=== PATIENT | male | born 1965 | race Caucasian/White ===

== ENCOUNTER 2020-09-29 17:07 | Emergency (ER) | payer OTHER, SELFPAY ==
[2020-09-29] VITALS (12 sets, daily range): BP systolic 107–139; BP diastolic 68–91; PULSE 74–93; RESP 13–39; TEMP 37.6; O2SAT 95–99; BMI 27.2
--- NOTE | 2020-09-29 17:10 | DI.RAD.S_ITS ---
PROCEDURE: XR CHEST 1V INDICATIONS: chest pain TECHNIQUE: One view of the chest was acquired. COMPARISON: None. FINDINGS: Surgical changes and devices: None. Lungs and pleura: Lungs are clear. No pleural effusions or pneumothorax. Mediastinum: Mediastinal contours appear normal. Heart size is normal. Bones and chest wall: No suspicious bony lesions. Overlying soft tissues appear unremarkable. IMPRESSION: No evidence acute pulmonary process. Dictated by: Luis Choudhury M.D. on 09/29/2020 at 17:21 Approved by: Luis Choudhury M.D. on 09/29/2020 at 17:22
--- NOTE | 2020-09-29 17:36 | PC.NURSE ---
When asked if pt feels safe at home pt sts I don't know, this keeps happening at home. I don't know if I'm safe. Pt reports he lives with (at bedside) and 11yo daughter.
[2020-09-29 17:41] LABS: Add Manual Diff / Slide Review NO; Basophils Absolute Auto 0 /uL (0-100); Basophils Percent Auto 0.9 % (0-2); Eosinophils Absolute Auto 100 /uL (0-450); Eosinophils Percent Auto 1.5 % (2-4); Hematocrit 41.3 % (41-53); Hemoglobin 14.1 g/dL (13.5-17.5); Lymphocytes Absolute Auto 1600 /uL (1100-4500); Lymphocytes Percent Auto 30.1 % (25-40); Mean Corpuscular HGB Conc 34.2 % (30-36); Mean Corpuscular Hemoglobin 31.2 PG (26-34); Mean Corpuscular Volume 91.1 fL (80-100); Monocytes Absolute Auto 300 /uL (0-900); Monocytes Percent Auto 5.2 % (3-14); Neutrophils Absolute Auto 3300 /uL (1500-7000); Neutrophils Percent Auto 62.3 % (50-75); Platelet Count 384 X10^3/uL (150-400); Red Blood Cell Count 4.53 X10^6/uL (4.5-5.9); Red Cell Distribution Width 13.5 % (11.6-14.8); White Blood Cell Count 5.4 X10^3/uL (4.5-11.0)
[2020-09-29 17:47] LABS: Alanine Aminotransferase 20 IU/L (<50); Albumin Globulin Ratio 1.5 (1.0-2.8); Alkaline Phosphatase 60 U/L (38-126); Aspartate Aminotransferase 35 IU/L (17-59); BUN Creatinine Ratio 12.6 (6-22); Bilirubin Total 0.8 mg/dL (0.2-1.3); Blood Urea Nitrogen 11 mg/dL (9-20); Calcium 9.5 mg/dL (8.4-10.2); Carbon Dioxide 27 mmol/L (22-32); Chloride 107 mmol/L (98-107); Creatine Kinase 280 U/L (55-170); Estimated Glomerular Filt Rate > 60.0 mL/min (>60); Globulin 2.7 g/dL (1.7-4.1); Glucose 93 mg/dL (70-100); Lipase 56 U/L (23-300); Potassium 3.8 mmol/L (3.4-5.1); Sodium 141 mmol/L (137-145); Total Protein 6.7 g/dL (6.3-8.2)
[2020-09-29 17:54] LABS: Ethanol (ETOH) < 10 mg/dL
[2020-09-29 17:59] LABS: Troponin I < 0.012 ng/mL (0.01-0.034)
[2020-09-29] MEDS: SODIUM CHLORIDE 0.9% 1,000 ML 1000 ML IV (18:10)
--- NOTE | 2020-09-29 18:11 | ED_ITS ---
HPI - Syncope General Chief Complaint: Syncope Stated Complaint: Multiple Syncope Time Seen by Provider: 09/29/20 17:26 Source: patient Mode of arrival: Ambulatory Limitations: no limitations History of Present Illness HPI narrative: Patient is a 55-year-old male who has past medical history of schizophrenia, methamphetamine abuse, alcohol abuse presenting with multiple syncopal episodes. He states that he has passed out 15 20 times in the last 1-2 months. He has been seen by his primary care provider and was at [facility] yesterday. Records have been reviewed from that visit he apparently eloped multiple times. Today he says he passed out again. He stood up his legs felt weak and he fell to the floor. Because it is not always associated with standing for position sometimes he is standing and passes out. He denies any prodrome all symptoms such as chest pain palpitations tunnel vision flushing or other symptoms. He is on sure how long he passes out for. He currently denies any weakness numbness or tingling. He states he is supposed to take losartan but has not been taking losartan for at least 1 month. MD complaint: collapsed Onset (ago): month(s) Prodromal symptoms: none Related Data Allergies Allergy/AdvReac Type Severity Reaction Status Date / Time No Known Drug Allergies Allergy Verified 09/29/20 17:30 Review of Systems Review of Systems Narrative: GENERAL: Denies chills, fatigue, malaise, fever, sweats, travel HEENT: Denies sinus pain, ear pain, sore throat, difficulty swallowing, neck pain RESPIRATORY: Denies dyspnea, cough, wheezing, hemoptysis, sputum. CARDIOVASCULAR: Denies chest pain, palpitations, orthopnea, edema GASTROINTESTINAL: Denies nausea, vomiting, abdominal pain, diarrhea, constipation, melena. : Denies dysuria, frequency, incontinence, hematuria, urinary retention, flank pain. MUSCULOSKELETAL: Denies weakness, joint pain, or bony pain SKIN: No rash, no erythema, no pruritus NEUROLOGIC: See HPI PSYCHIATRIC: No concerning psychosocial issues. 12 point review of systems is negative except for those stated above and HPI Patient History Medical History Hyperlipidemia Hypertension Schizophrenia Social History Smoking Status: Current every day smoker Smoking Status: Current every day smoker alcohol intake frequency: 0-2 drinks per day Substance Use Type: marijuana Exam Initial Vital Signs Initial Vital Signs: Vital Signs Pulse Rate 89 09/29/20 17:20 Pulse Oximetry 98 09/29/20 17:20 GENERAL: 55-year-old male appears older than stated age HEENT: Head atraumatic,EOMI, pupils reactive, face symmetric, moist mucous membranes CARDIOVASCULAR: Regular rate and rhythm without murmurs, rubs or gallops. RESPIRATORY: Breath sounds equal bilaterally, no wheezes rales or rhonchi. ABDOMEN: Soft, nontender. Normoactive bowel sounds all 4 quadrants. No guarding or rebound. EXTREMITIES: Normal range of motion, no clubbing or edema. Neurovascularly intact NEUROLOGICAL: Alert and oriented x4.Normal gait and speech. Cranial nerves II through XII grossly intact. Good [id number], good yoog-ey-rles, strength equal bilaterally, no dysarthria or aphasia, sensation in tact to soft touch bilaterally, no visual changes, no facial droop SKIN: Warm, dry, no laceration, no petechiae, no rashes or lesions. Scores NIH Stroke Scale Level of Conciousness: Alert, keenly responsive Ask month/age: Answers both questions correctly. Open/close eyes, close hand: Performs both tasks correctly Best gaze horizontal: Normal Visual stephenson: No visual loss Facial palsy: Normal symetrical movement Left arm drift: No drift for full 10 sec Right arm drift: No drift for full 10 sec Left leg drift: No drift for full 5 sec Right leg drift: No drift for full 5 sec Limb ataxia: Absent Sensory on face/arms/legs: Normal, no sensory loss Best language: No aphasia, normal Dysarthria: Normal Extinction or inattention: No abnormality Total NIH Stroke scale score: 0 Course Orders Ordered: ED Orders 09/29/20 17:10 XR chest 1V Stat EKG-12 Lead Stat 09/29/20 17:31 Complete Blood Count AUTO DIFF Stat Comprehensive Metabolic Panel Stat Ethanol (ETOH) Stat Lipase Stat Magnesium Stat Troponin & CK Cardiac Panel Stat 09/29/20 18:10 CT angio head and neck Stat 09/29/20 19:34 Urinalysis and Microscopic Stat Urine Drug Screen, Rapid Stat Discontinued Medications Sodium Chloride (Normal Saline 0.9%) 1,000 mls @ 1,000 mls/hr IV BOLUS ONE Stop: 09/29/20 18:33 Last Infusion: 09/29/20 19:49 Dose: 0 mls/hr Documented by: Admin: 09/29/20 18:10 Dose: 1,000 mls/hr Documented by: PEG Vital Signs Vital signs: Vital Signs - 8 hr 09/29/20 17:20 09/29/20 17:23 09/29/20 17:30 Temperature 99.7 F H Pulse Rate 89 91 H 83 Pulse Rate [Orthostatic Lying] Pulse Rate [Orthostatic Sitting] Pulse Rate [Orthostatic Standing] Respiratory Rate 15 29 H Blood Pressure 127/80 125/77 Blood Pressure [Orthostatic Lying] Blood Pressure [Orthostatic Sitting] Blood Pressure [Orthostatic Standing] Pulse Oximetry 98 98 98 09/29/20 18:00 09/29/20 18:10 09/29/20 18:12 Temperature Pulse Rate 74 86 91 H Pulse Rate [Orthostatic Lying] Pulse Rate [Orthostatic Sitting] Pulse Rate [Orthostatic Standing] Respiratory Rate 13 21 22 Blood Pressure 107/68 117/73 116/74 Blood Pressure [Orthostatic Lying] Blood Pressure [Orthostatic Sitting] Blood Pressure [Orthostatic Standing] Pulse Oximetry 95 95 96 09/29/20 18:13 09/29/20 18:20 09/29/20 18:28 Temperature Pulse Rate 91 H 84 Pulse Rate [Orthostatic Lying] 84 Pulse Rate [Orthostatic Sitting] 91 H Pulse Rate [Orthostatic Standing] 92 H Respiratory Rate 22 21 Blood Pressure 119/80 129/85 Blood Pressure [Orthostatic Lying] 117/73 Blood Pressure [Orthostatic Sitting] 116/74 Blood Pressure [Orthostatic Standing] 119/80 Pulse Oximetry 97 99 09/29/20 18:30 09/29/20 19:00 09/29/20 19:30 Temperature Pulse Rate 85 86 93 H Pulse Rate [Orthostatic Lying] Pulse Rate [Orthostatic Sitting] Pulse Rate [Orthostatic Standing] Respiratory Rate 20 19 39 H Blood Pressure 126/81 139/72 132/91 H Blood Pressure [Orthostatic Lying] Blood Pressure [Orthostatic Sitting] Blood Pressure [Orthostatic Standing] Pulse Oximetry 97 98 99 MDM - Syncope Lab Data Attestation: I reviewed the patient's lab results. Result diagrams: 09/29/20 17:31 09/29/20 17:31 Labs: Lab Results 09/29/20 09/29/20 09/29/20 Range/Units 17:31 17:31 17:31 WBC 5.4 (4.5-11.0) X10^3/uL RBC 4.53 (4.5-5.9) X10^6/uL Hgb 14.1 (13.5-17.5) g/dL Hct 41.3 (41-53) % MCV 91.1 (80-100) fL MCH 31.2 (26-34) PG MCHC 34.2 (30-36) % RDW 13.5 (11.6-14.8) % Plt Count 384 (150-400) X10^3/uL Neut % (Auto) 62.3 (50-75) % Lymph % (Auto) 30.1 (25-40) % [place] % (Auto) 5.2 (3-14) % Eos % (Auto) 1.5 L (2-4) % Baso % (Auto) 0.9 (0-2) % Neut # (Auto) 3300 (5454-2596) /uL Lymph # (Auto) 1600 (2276-2430) /uL [place] # (Auto) 300 (0-900) /uL Eos # (Auto) 100 (0-450) /uL Baso # (Auto) 0 (0-100) /uL Sodium 141 (137-145) mmol/L Potassium 3.8 (3.4-5.1) mmol/L Chloride 107 (98-107) mmol/L Carbon Dioxide 27 (22-32) mmol/L BUN 11 (9-20) mg/dL Creatinine 0.87 (0.66-1.25) mg/dL Estimated GFR > 60.0 (>60) mL/min BUN/Creatinine Ratio 12.6 (6-22) Glucose 93 (70-100) mg/dL Calcium 9.5 (8.4-10.2) mg/dL Magnesium 2.0 (1.6-2.3) mg/dL Total Bilirubin 0.8 (0.2-1.3) mg/dL AST 35 (17-59) IU/L ALT 20 (<50) IU/L Alkaline Phosphatase 60 (38-126) U/L Total Creatine Kinase 280 H (55-170) U/L CK-MB (CK-2) 5.30 H (<2.37) ng/mL CK-MB (CK-2) Rel Index 1.9 (1.5-5.0) % Troponin I < 0.012 (0.01-0.034) ng/mL Total Protein 6.7 (6.3-8.2) g/dL Albumin 4.0 (3.5-5.0) g/dL Globulin 2.7 (1.7-4.1) g/dL Albumin/Globulin Ratio 1.5 (1.0-2.8) Lipase 56 (23-300) U/L Urine Color Urine Appearance Urine pH (4.5-8.0) Ur Specific [place] (1.000-1.035) Urine Protein (Negative) Urine Glucose (UA) (Negative) g/dL Urine Ketones (NEGATIVE) Urine Occult Blood (Negative) Urine Nitrate (Negative) Urine Bilirubin (NEGATIVE) Urine Urobilinogen (0.2) E.U./dL Ur Leukocyte Esterase (NEGATIVE) Urine RBC (0-5/HPF) Urine WBC (0-5/HPF) Amorphous Sediment Urine Bacteria (None) Ur Culture Indicated? U Opiates 300ng/mL cut (Negative) Ur Oxycodone Screen (Negative) Urine Methadone Screen (Negative) Ur Barbiturates Screen (Negative) U Tricyclic Antidepress (Negative) Ur Phencyclidine Scrn (Negative) Ur Amphetamines Screen (Negative) U Methamphetamines Scrn (Negative) Ur MDMA Scrn (Ecstasy) (Negative) U Benzodiazepines Scrn (Negative) Urine Cocaine Screen (Negative) U Marijuana (THC) Screen (Negative) Ethyl Alcohol < 10 ( - 10) mg/dL 09/29/20 09/29/20 Range/Units 19:34 19:34 WBC (4.5-11.0) X10^3/uL RBC (4.5-5.9) X10^6/uL Hgb (13.5-17.5) g/dL Hct (41-53) % MCV (80-100) fL MCH (26-34) PG MCHC (30-36) % RDW (11.6-14.8) % Plt Count (150-400) X10^3/uL Neut % (Auto) (50-75) % Lymph % (Auto) (25-40) % [place] % (Auto) (3-14) % Eos % (Auto) (2-4) % Baso % (Auto) (0-2) % Neut # (Auto) (7641-1724) /uL Lymph # (Auto) (1217-1953) /uL [place] # (Auto) (0-900) /uL Eos # (Auto) (0-450) /uL Baso # (Auto) (0-100) /uL Sodium (137-145) mmol/L Potassium (3.4-5.1) mmol/L Chloride (98-107) mmol/L Carbon Dioxide (22-32) mmol/L BUN (9-20) mg/dL Creatinine (0.66-1.25) mg/dL Estimated GFR (>60) mL/min BUN/Creatinine Ratio (6-22) Glucose (70-100) mg/dL Calcium (8.4-10.2) mg/dL Magnesium (1.6-2.3) mg/dL Total Bilirubin (0.2-1.3) mg/dL AST (17-59) IU/L ALT (<50) IU/L Alkaline Phosphatase (38-126) U/L Total Creatine Kinase (55-170) U/L CK-MB (CK-2) (<2.37) ng/mL CK-MB (CK-2) Rel Index (1.5-5.0) % Troponin I (0.01-0.034) ng/mL Total Protein (6.3-8.2) g/dL Albumin (3.5-5.0) g/dL Globulin (1.7-4.1) g/dL Albumin/Globulin Ratio (1.0-2.8) Lipase (23-300) U/L Urine Color Yellow Urine Appearance Sl cloudy Urine pH 7.0 (4.5-8.0) Ur Specific [place] <=1.005 (1.000-1.035) Urine Protein Negative (Negative) Urine Glucose (UA) Negative (Negative) g/dL Urine Ketones Negative (NEGATIVE) Urine Occult Blood Negative (Negative) Urine Nitrate Negative (Negative) Urine Bilirubin Negative (NEGATIVE) Urine Urobilinogen 1.0 (0.2) E.U./dL Ur Leukocyte Esterase Negative (NEGATIVE) Urine RBC None seen (0-5/HPF) Urine WBC None seen (0-5/HPF) Amorphous Sediment 1+ Urine Bacteria None seen (None) Ur Culture Indicated? Cult not indicated U Opiates 300ng/mL cut Negative (Negative) Ur Oxycodone Screen Negative (Negative) Urine Methadone Screen Negative (Negative) Ur Barbiturates Screen Negative (Negative) U Tricyclic Antidepress Negative (Negative) Ur Phencyclidine Scrn Negative (Negative) Ur Amphetamines Screen Negative (Negative) U Methamphetamines Scrn Positive H (Negative) Ur MDMA Scrn (Ecstasy) Negative (Negative) U Benzodiazepines Scrn Negative (Negative) Urine Cocaine Screen Negative (Negative) U Marijuana (THC) Screen Positive H (Negative) Ethyl Alcohol ( - 10) mg/dL Imaging Data CTA - brain/neck: Radiologist's Impression: PROCEDURE: CT ANGIO HEAD AND NECK INDICATIONS: Frequent syncopal episodes TECHNIQUE: Pre-contrast 4.5 mm thick sections acquired from the foramen magnum to the vertex. After the administration of intravenous contrast, 1 mm thick sections acquired from the aortic arch through the [place]. Post-contrast 4.5 mm thick sections then re- acquired from the foramen magnum to the vertex. 3-dimensional akbxrkq-vfjlceyiq-zmxfdiefsd (MIP) and/or volume rendering reformats were acquired of the central intracranial vasculature and neck separately. COMPARISON: None. FINDINGS: Image quality: Excellent. BRAIN: CSF spaces: Ventricles are normal in size and shape. Basal cisterns are patent. No extra-axial fluid collections. Brain: No midline shift. No intracranial bleeds or masses. Dailey-white matter interface appears intact. No area of abnormal contrast enhancement is seen. Skull and face: Calvarium and facial bones appear intact, without suspicious le sions. Orbits appear normal. Sinuses: Sinuses and mastoids are clear. HEAD CT ANGIOGRAPHY: Anterior circulation: Intracranial internal carotid arteries are normal in size and flow. The flow within the paired anterior cerebral arteries is normal and symmetric. The flow within the middle cerebral arteries is normal and symmetric. The anterior communicating artery is seen. No aneurysms are seen. Posterior circulation: Visualized portions of the vertebral arteries demonstrate normal caliber, and join to form a normal appearing basilar artery. Flow within the posterior cerebral arteries is normal and symmetric. No aneurysms are seen. NECK CT ANGIOGRAPHY: Carotid system: The great vessels demonstrate a conventional anatomy as they arise from the aortic arch. The origins of the common carotid arteries appear patent. The common carotid arteries demonstrate normal caliber and courses. The bifurcation regions are both widely patent. The internal carotid arteries demonstrate normal calibers and courses. Posterior circulation: The origins of the vertebral arteries both appear widely patent. The more superior extracranial portions of both vertebral arteries also demonstrate normal courses and calibers. They join to form a normal appearing basilar artery. Soft tissues: Visualized neck soft tissues demonstrate no suspicious abnormalities. Bones: No suspicious bony lesions. Visualized cervical spine appears normally aligned. IMPRESSION: 1. No CT evidence of acute intracranial pathology. No area of abnormal intracranial enhancement. 2. No hemodynamically significant stenosis or aneurysm is seen in intracranial circulation. 3. No hemodynamically significant stenosis are noted in bilateral neck arteries. Any quantitative measurements of stenosis were performed using NASCET criteria. Dictated by: Jason Roberts M.D. on 09/29/2020 at 19:16 ECG Data Attestation: I personally reviewed and interpreted this ECG as follows: Prior ECG tracings: not available for review Interpretation: Normal sinus rhythm rate 86 p.r. interval 142/[address] changes or T-wave inversions MDM Narrative Medical decision making narrative: Orthostatics are negative Patient's reports that she recently learned of methamphetamine use she is on sure the signs or symptoms of it. The patient regaining to get agitated waiting for CT result wanting to leave. CT results are fortunately negative. I did discuss with patient that if he is using methamphetamine which is drug screen is positive for that this could be contributing to his syncopal episodes. I also recommend that he follow-up with the primary care provider for a Holter monitor. He has no focal neurologic deficits to suggest TIA or stroke. Symptoms have also been ongoing for over a month and do not seem to be different today. Records have been reviewed from outside hospital where he was seen yesterday, the patient eloped numerous times while in the emergency department. At this time patient can be discharged Discharge Plan Departure Patient Disposition: Home Clinical Impression: Vasovagal syncope Instructions: DI for Syncope in Adults (Fainting) Activity Restrictions/Additional Instructions: *You have been diagnosed with recurrent syncopal episodes *What to do: At this time it is imperative that you follow-up with her primary care provider need a heart monitor. Blood work and CT scan today do not show any abnormality however do need further workup and follow-up *Continue to take medications as directed *Follow up with your primary care provider in 2-3 days *Return to ER if you should have difficulty breathing, weakness on 1 side, chest pain [or] any new, worsening or concerning symptoms Referrals: Natalia Almeida ARNP [Non-Staff] -
[2020-09-29 18:25] LABS: CKMB % Relative Index 1.9 % (1.5-5.0); HEMOLYSIS 23 (0-50)
[2020-09-29 19:43] LABS: Bacteria Urine None Seen; RBC Urine None Seen (0-5/HPF); WBC Urine None Seen (0-5/HPF)
--- NOTE | 2020-09-29 19:43 | PC.NURSE ---
asked to speak with me outside of room and reported that patient may have been using methamphetamine and his behavior had been erratic. I asked if she felt safe at home and she stated she did. I asked about minor children in the home and she states that she could keep her grandchild (which she has custody of) safe. She asked if we could make him go to rehab or place him on a psychiatric hold. Pt states he is not homicidal / suicidal. Pt is not a risk to self or others at this time. I told her we could not unless he was a risk to himself or others. Encouraged to maintain safety and to call 911 if she felt threatened or if behavior became of concern to her. She verbalized understanding.
[2020-09-29 19:45] LABS: Appearance Urine UA SL CLOUDY; Bilirubin Urine UA NEGATIVE (NEGATIVE); Color Urine UA YELLOW; Glucose Urine UA NEGATIVE (Negative); Ketones Urine UA NEGATIVE (NEGATIVE); Leukocyte Esterase Urine UA NEGATIVE (NEGATIVE); Nitrite Urine UA NEGATIVE (Negative); Occult Blood Urine UA NEGATIVE (Negative); Protein Urine UA NEGATIVE (Negative); Specific Gravity Urine UA <=1.005 (1.000-1.035)
[2020-09-29 19:52] LABS: Amorphous Sediment Urine 1+; Culture Indicated Urine Cult Not Indicated; UR Morphine/Opiate cutoff 300 Negative (Negative); Ur Creatinine Normal (Normal); Ur Specific Gravity Normal (Normal); Urine Amphetamines Negative (Negative); Urine Barbiturates Negative (Negative); Urine Benzodiazepines Negative (Negative); Urine Cocaine Negative (Negative); Urine MDMA Negative (Negative); Urine Methadone Negative (Negative); Urine Methamphetamines Positive (Negative); Urine Oxycodone Negative (Negative); Urine Phencyclidine Negative (Negative); Urine Tetrahydrocannabinol Positive (Negative); Urine Tricyclic Antidepressant Negative (Negative); Urine pH Normal (Normal)
== END 2020-09-29 19:51 | disposition home or self-care (01) ==
PROVIDERS: Emergency Medicine; Emergency Provider Emergency Medicine
DX: R55 Syncope and collapse (principal); R07.9 Chest pain, unspecified
CPT/HCPCS: 36415; 70496; 70498; 71045; 80053; 80305; 80320; 81001; 82550; 82553; 83690; 83735; 84484; 85025; 93005; 93010; 96360; 96361; 99284; Q9967

== ENCOUNTER 2021-01-20 09:09 | Emergency (ER) | payer OTHER, MEDICAID, SELFPAY ==
[2021-01-20 09:22] VITALS: BP 133/71; PULSE 97; RESP 18; TEMP 36.6; O2SAT 97; BMI 29.2
--- NOTE | 2021-01-20 09:51 | ED.WOUNDLAC ---
HPI - Wound/Laceration General Chief Complaint: Wound/Laceration Stated Complaint: Lac on chin Time Seen by Provider: 01/20/21 09:47 Source: patient Mode of arrival: Family Vehicle Limitations: no limitations History of Present Illness HPI narrative: Patient is a 55-year-old male who was camping at a local camp site. He is up-to-date on his tetanus shot. States this morning he was trying to pull a [place] apart for firewood and the would came up and hit hit himself in the chin. No other injuries from the event. I did happen a couple hours ago. Related Data Allergies Allergy/AdvReac Type Severity Reaction Status Date / Time No Known Drug Allergies Allergy Verified 01/20/21 09:21 Review of Systems Eyes Comments: No vision changes ENT Comments: Cut to chin Integumentary/Breasts Comments: Cut to chin Hematologic/Lymphatic On Anticoagulants: No Patient History Medical History Hyperlipidemia Hypertension Schizophrenia Social History Smoking Status: Current every day smoker Smoking Status: Current every day smoker alcohol intake frequency: 0-2 drinks per day Substance Use Type: marijuana Exam Initial Vital Signs Initial Vital Signs: Vital Signs Temperature 97.9 F 01/20/21 09:22 Pulse Rate 97 H 01/20/21 09:22 Respiratory Rate 18 01/20/21 09:22 Blood Pressure 133/71 01/20/21 09:22 Pulse Oximetry 97 01/20/21 09:22 HENMT Head: normal to inspection and normocephalic Mouth: oral mucosae normal Teeth and gingiva: dentition normal Skin Other: 3 cm laceration to left of midline of his chin Neuro General: patient alert, patient awake and patient oriented x3 Procedures Laceration Repair Laceration 1: Site: face (Chin) Side (If applicable): left Size (cm): 4 Description: linear Depth: simple, single layer Local Anesthetic: lidocaine 1% and with bicarb Amount of anesthesia used (mL): 3 Pre-repair: wound explored, irrigated extensively and deep structures intact Skin layer closed with: nylon Size (cm): 4-0 Number of sutures: 5 Technique: simple, interrupted Course Orders Ordered: Discontinued Medications Bacitracin (Bacitracin Oint 0.9 Gm Pckt) 1 applic TOP NOW ONE Stop: 01/20/21 09:48 Lidocaine/Sodium Bicarbonate (Lido 1%/Sod Bicarb 8.4% (10ml) 10 Ml Syringe) 10 ml INJ NOW ONE Stop: 01/20/21 09:48 Vital Signs Vital signs: Vital Signs - 8 hr 01/20/21 09:22 Temperature 97.9 F Pulse Rate 97 H Respiratory Rate 18 Blood Pressure 133/71 Pulse Oximetry 97 MDM - Wound/Laceration MDM Narrative Medical decision making narrative: Patient has no dental injuries. The wound was superficial. He is up-to-date on his tetanus. He was given care instructions and return precautions. He expressed understanding and agree Discharge Plan Departure Patient Disposition: Home Clinical Impression: Laceration Instructions: DI for Laceration Repair Activity Restrictions/Additional Instructions: The stitches that were placed today are not absorbable. They will need to be removed in 10 days. You can go to the walk-in clinic for this. Keep the area covered with an antibiotic ointment. Return to the emergency department for any new or worsening symptoms
--- NOTE | 2021-01-20 09:55 | PC.NURSE ---
Physician at bedside suturing chin lac. Pt tolerating well.
[2021-01-20] MEDS: BACITRACIN OINT 0.9 GM PCKT 1 APPLIC TOP (10:01)
[2021-01-20] MEDS: LIDO 1%/SOD BICARB 8.4% (10ML) 10 ML SYRINGE INJ (10:01)
== END 2021-01-20 10:16 | disposition home or self-care (01) ==
PROVIDERS: Emergency Provider Emergency Medicine
DX: S01.81XA Laceration without foreign body of other part of head, initial encounter (principal); W22.8XXA Striking against or struck by other objects, initial encounter
CPT/HCPCS: 12013; 99283

== ENCOUNTER 2021-08-25 15:18 | Emergency (ER) | payer OTHER, MEDICAID, SELFPAY ==
[2021-08-25 15:24] VITALS: TEMP 36.8
[2021-08-25 15:25] VITALS: BP 145/91; PULSE 94; RESP 22; O2SAT 98
--- NOTE | 2021-08-25 15:27 | DI.RAD.S_ITS ---
PROCEDURE: XR ACUTE ABDOMEN SERIES INDICATIONS: abd pain/constipation TECHNIQUE: One view chest and two views of the abdomen were acquired. COMPARISON: [facility], CT, CT KUB, 05/28/2020, 22:33. [facility], CR, XR CHEST 1V, 09/29/2020, 17:34. FINDINGS: Surgical changes and devices: None. Chest: An incomplete inspiratory result is noted, causing a crowded appearance to the lung markings. No focal infiltrates are seen. No pneumothorax or significant pleural effusions are seen. Heart size is normal. No pneumoperitoneum. Abdomen: Bowel gas pattern is normal. No suspicious calcifications. Visualized solid organ contours appear normal. Bones: No suspicious bony lesions. IMPRESSION: A nonobstructive bowel gas pattern is seen. A kvin-mf-mqejyqmz amount of stool can be seen within the colon. If clinically appropriate, please consider a repeat plain film study or a dedicated CT of the abdomen and pelvis, if the patient's symptoms persist or worsen. Low lung volumes, without an acute chest abnormality seen. Dictated by: Rohith Rosado M.D. on 08/25/2021 at 15:38 Approved by: Rohith Rosado M.D. on 08/25/2021 at 15:39
[2021-08-25 17:00] LABS: Add Manual Diff / Slide Review NO; Basophils Absolute Auto 100 /uL (0-100); Basophils Percent Auto 0.9 % (0-2); Eosinophils Absolute Auto 100 /uL (0-450); Eosinophils Percent Auto 1.8 % (2-4); Hematocrit 34.7 % (41-53); Hemoglobin 12.2 g/dL (13.5-17.5); Lymphocytes Absolute Auto 1700 /uL (1100-4500); Lymphocytes Percent Auto 24.3 % (25-40); Mean Corpuscular HGB Conc 35.1 % (30-36); Mean Corpuscular Volume 85.7 fL (80-100); Monocytes Absolute Auto 400 /uL (0-900); Monocytes Percent Auto 5.8 % (3-14); Neutrophils Absolute Auto 4700 /uL (1500-7000); Neutrophils Percent Auto 67.2 % (50-75); Platelet Count 418 X10^3/uL (150-400); Red Blood Cell Count 4.05 X10^6/uL (4.5-5.9); Red Cell Distribution Width 13.7 % (11.6-14.8)
[2021-08-25 17:12] LABS: Alanine Aminotransferase 31 IU/L (<50); Albumin 4.7 g/dL (3.5-5.0); Albumin Globulin Ratio 1.6 (1.0-2.8); Alkaline Phosphatase 82 U/L (38-126); Aspartate Aminotransferase 36 IU/L (17-59); BUN Creatinine Ratio 11.1 (6-22); Bilirubin Total 0.3 mg/dL (0.2-1.3); Blood Urea Nitrogen 9 mg/dL (9-20); Calcium 9.5 mg/dL (8.4-10.2); Carbon Dioxide 27 mmol/L (22-32); Chloride 103 mmol/L (98-107); Estimated Glomerular Filt Rate > 60 mL/min (>60); Glucose 115 mg/dL (70-100); HEMOLYSIS < 15 (0-50); Lipase 227 U/L (23-300); Potassium 3.8 mmol/L (3.4-5.1); Sodium 137 mmol/L (137-145); Total Protein 7.7 g/dL (6.3-8.2)
--- NOTE | 2021-08-25 19:54 | PC.NURSE ---
pt not in room or restrooms.
== END 2021-08-25 20:00 | disposition left against medical advice (07) ==
PROVIDERS: Emergency Medicine; Emergency Provider Emergency Medicine; PCP Internal Medicine Pulmonary Disease
DX: R10.9 Unspecified abdominal pain (principal); K59.00 Constipation, unspecified
CPT/HCPCS: 74022; 80053; 81003; 83690; 85025; 99281

== ENCOUNTER 2021-08-31 16:52 | Emergency (ER) | payer OTHER, MEDICAID, SELFPAY ==
[2021-08-31 16:57] VITALS: BP 107/61; PULSE 104; RESP 16; TEMP 35.9; O2SAT 98; BMI 28.7
--- NOTE | 2021-08-31 17:24 | ED.ABDPAIN ---
HPI - Abdominal Pain General Chief Complaint: Abdominal Pain Stated Complaint: ABD pain Time Seen by Provider: 08/31/21 17:05 Mode of arrival: Wheelchair History of Present Illness HPI narrative: 56-year-old Male history of obstruction presenting today with abdominal pain ongoing for at least a week. He was actually seen here on August 25 and x-ray was ordered from the waiting room however he left without results and without being seen. Mild to moderate amount of stool within the colon without obstruction. He states he has not had a bowel movement in over a week. He feels like he has a history with full. Presents again today with increasing pain and pressure. Says it hurts when he moves. No nausea vomiting fever. No chest pain or palpitations. He has a known ventral hernia. And previously it patient says that he ate a bunch of baking soda and ?blew himself up ?and needed surgery. Related Data Previous Rx's Medication Instructions Recorded lactulose 10 gram/15 mL oral 10 g (15 mL) PO TID PRN #237 ml 08/31/21 solution Allergies Allergy/AdvReac Type Severity Reaction Status Date / Time No Known Drug Allergies Allergy Verified 08/31/21 17:00 Review of Systems Review of Systems Narrative: GENERAL: Denies chills, fatigue, malaise, fever, sweats, travel HEENT: Denies sinus pain, ear pain, sore throat, difficulty swallowing, neck pain RESPIRATORY: Denies dyspnea, cough, wheezing, hemoptysis, sputum. CARDIOVASCULAR: Denies chest pain, palpitations, orthopnea, edema GASTROINTESTINAL: See HPI : Denies dysuria, frequency, incontinence, hematuria, urinary retention, flank pain. MUSCULOSKELETAL: Denies weakness, joint pain, or bony pain SKIN: No rash, no erythema, no pruritus NEUROLOGIC: Denies weakness, dizziness, headache, numbness, change in speech, confusion PSYCHIATRIC: No concerning psychosocial issues. 12 point review of systems is negative except for those stated above and HPI Patient History Medical History Hyperlipidemia Hypertension Schizophrenia Social History Smoking Status: Current every day smoker Smoking Status: Current every day smoker alcohol intake frequency: 0-2 drinks per day Alcohol type: beer Substance Use Type: marijuana Exam Initial Vital Signs Initial Vital Signs: Vital Signs Temperature 96.7 F L 08/31/21 16:57 Pulse Rate 104 H 08/31/21 16:57 Respiratory Rate 16 08/31/21 16:57 Blood Pressure 107/61 08/31/21 16:57 Pulse Oximetry 98 08/31/21 16:57 GENERAL: Alert 56-year-old male acute distress HEENT: Head atraumatic,EOMI, pupils reactive, face symmetric, [moist] mucous membranes CARDIOVASCULAR: Regular rate and rhythm without murmurs, rubs or gallops. RESPIRATORY: Breath sounds equal bilaterally, no wheezes rales or rhonchi. ABDOMEN: Vertical scar noted ventral hernia reducible distension increased bowel sounds no localization of pain EXTREMITIES: Normal range of motion, no clubbing or edema. Neurovascularly intact NEUROLOGICAL: Alert and oriented x4.Normal gait and speech. SKIN: Warm, dry, no laceration, no petechiae, no rashes or lesions. Course Orders Ordered: Discontinued Medications Hydromorphone HCl (Hydromorphone 1 Mg Inj) 1 mg IV NOW ONE Stop: 08/31/21 17:59 Last Admin: 08/31/21 18:05 Dose: 0.5 mg Documented by: SHEY Magnesium Citrate (Magnesium Citrate 300 Ml Solution) 300 ml PO NOW ONE Stop: 08/31/21 18:52 Last Admin: 08/31/21 19:43 Dose: 300 ml Documented by: [email or web address] Vital Signs Vital signs: Vital Signs - 8 hr 08/31/21 16:57 Temperature 96.7 F L Pulse Rate 104 H Respiratory Rate 16 Blood Pressure 107/61 Pulse Oximetry 98 MDM - Abdominal Pain Lab Data Result diagrams: 08/31/21 17:42 08/31/21 17:42 Labs: Lab Results 08/31/21 08/31/21 08/31/21 Range/Units 17:42 17:42 17:42 WBC 6.1 (4.5-11.0) X10^3/uL RBC 4.06 L (4.5-5.9) X10^6/uL Hgb 11.9 L (13.5-17.5) g/dL Hct 35.3 L (41-53) % MCV 86.9 (80-100) fL MCH 29.4 (26-34) PG MCHC 33.8 (30-36) % RDW 13.9 (11.6-14.8) % Plt Count 320 (150-400) X10^3/uL Neut % (Auto) 61.4 (50-75) % Lymph % (Auto) 27.9 (25-40) % [place] % (Auto) 7.4 (3-14) % Eos % (Auto) 2.8 (2-4) % Baso % (Auto) 0.5 (0-2) % Neut # (Auto) 3800 (4388-3872) /uL Lymph # (Auto) 1700 (8399-5989) /uL [place] # (Auto) 500 (0-900) /uL Eos # (Auto) 200 (0-450) /uL Baso # (Auto) 0 (0-100) /uL Sodium 139 (137-145) mmol/L Potassium 4.1 (3.4-5.1) mmol/L Chloride 105 (98-107) mmol/L Carbon Dioxide 25 (22-32) mmol/L BUN 14 (9-20) mg/dL Creatinine 0.98 (0.66-1.25) mg/dL Estimated GFR > 60 (>60) mL/min BUN/Creatinine Ratio 14.3 (6-22) Glucose 89 (70-100) mg/dL Lactate 1.7 (0.7-2.1) mmol/L Calcium 8.5 (8.4-10.2) mg/dL Total Bilirubin 0.6 (0.2-1.3) mg/dL AST 23 (17-59) IU/L ALT 22 (<50) IU/L Alkaline Phosphatase 70 (38-126) U/L Total Protein 6.2 L (6.3-8.2) g/dL Albumin 3.7 (3.5-5.0) g/dL Globulin 2.5 (1.7-4.1) g/dL Albumin/Globulin Ratio 1.5 (1.0-2.8) Lipase 44 D (23-300) U/L Imaging Data CT scan - abdomen/pelvis: Radiologist's Impression: CT Scan Report Signed Patient: Cali Ibrahim MR#: [id number] : 1965 Acct:[id number] Age/Sex: 56 / M Date of Service: 08/31/21 Loc: ED Accession Number: [id number] ?? Procedure: CT abdomen pelvis w con Ordering Provider: Janeth Mayen D.O. PROCEDURE:? CT ABDOMEN PELVIS W CON ? INDICATIONS:? distention ? TECHNIQUE:? After the administration of intravenous contrast, axial sections acquired from the lung bases to the pubic symphysis.? Coronal and sagittal reformats were performed.? For radiation dose reduction, the following was used:? automated exposure control, adjustment of mA and/or kV according to patient size.? ? COMPARISON:? [facility], CT, CT KUB, 05/28/2020, 22:33. ? FINDINGS:? Image quality:? Excellent.? ? Lung bases:? Unremarkable. Heart:? No significant findings. ? ABDOMEN: Liver:? There is a 6.3 x 5.2 cm hypodense lesion in the left hepatic lobe adjacent to the falciform ligament. Gallbladder:? Unremarkable.? ? Biliary ducts:? Unremarkable.? ? Pancreas:? Unremarkable.? ? Spleen:? Low-density splenic lesion measures 3.5 x 5.2 cm in, previously 4.8 x 7.2 cm Adrenal Glands:? Unremarkable.? ? Kidneys and Ureters:? Nonobstructive 4 mm right renal calculus.? No hydronephrosis bilaterally ? Stomach and Bowel:? Stomach, small bowel loops, and colon are unremarkable.? Mild diverticulosis without evidence of diverticulitis. Peritoneum:? No abnormal intraperitoneal fluid.? No free air.? ? Ventral Wall:? Several prior umbilical ventral hernias contain fat and bowel without evidence of obstruction. Abdominal Nodes:? No retroperitoneal or mesenteric adenopathy by size criteria.? Vessels:? Aorta and inferior vena cava are normal in size.? ? PELVIS: Pelvic Organs:? Unremarkable.? ? Bladder:? Unremarkable.? ? Pelvic Nodes: No enlarged lymph nodes.? Miscellaneous: No hernias are seen. ? ? ? Bones:? Unremarkable.? IMPRESSION:? ? 1. Low-density hepatic lesion is suspicious for neoplasm, but differential would include prior trauma.? Consider follow-up hepatic protocol MR. ? 2. Low-density splenic lesion is smaller than the prior exam in 2020, may reflect resolving posttraumatic seroma.? Follow-up MR could also evaluate as well.? ? 3. Ventral hernias have increased in size and now contain loops of small bowel without obstruction.? Approved by: Navdeep Cast M.D. on 08/31/2021 at 17:18? MDM Narrative Medical decision making narrative: Patient's blood work is overall reassuring. Patient says he feels full he is having bouts of pain but does not need any pain medication. He complains that he has not had any bowel movement for number of days. CT does not show significant fecal load. It does show that he has small area on his liver. I discussed this with him and his that it does need close follow-up. He is says that he is taking whole sort of medication [id number] to have a bowel movement and has been unable to do so. We will send him home with lactulose. Discharge Plan Departure Patient Disposition: Home Clinical Impression: Constipation, Liver mass Instructions: DI for Constipation Activity Restrictions/Additional Instructions: *You have been diagnosed with constipation *What to do: At this time here CT scan does show a spot on her liver which needs close follow-up. You need to be sure that it is not cancer Increase fluid intake. Walk, this will help stimulate your bowels *Continue to take medications as directed Lactulose 3 times a day as needed for constipation, once you have a bowel movement do not take anymore *Follow up with your primary care provider in 2-3 days or call [phone] *Return to ER if you should have increasing abdominal pain, vomiting, fever chest pain or any new, worsening or concerning symptoms Prescriptions: New lactulose 10 gram/15 mL solution 10 g PO TID PRN (Reason: constipation) Qty: [id number] Referrals: Diane Snyder MD [Primary Care Provider] -
--- NOTE | 2021-08-31 17:32 | DI.CT.S_ITS ---
PROCEDURE: CT ABDOMEN PELVIS W CON INDICATIONS: distention TECHNIQUE: After the administration of intravenous contrast, axial sections acquired from the lung bases to the pubic symphysis. Coronal and sagittal reformats were performed. For radiation dose reduction, the following was used: automated exposure control, adjustment of mA and/or kV according to patient size. COMPARISON: [facility], CT, CT KUB, 05/28/2020, 22:33. FINDINGS: Image quality: Excellent. Lung bases: Unremarkable. Heart: No significant findings. ABDOMEN: Liver: There is a 6.3 x 5.2 cm hypodense lesion in the left hepatic lobe adjacent to the falciform ligament. Gallbladder: Unremarkable. Biliary ducts: Unremarkable. Pancreas: Unremarkable. Spleen: Low-density splenic lesion measures 3.5 x 5.2 cm in, previously 4.8 x 7.2 cm Adrenal Glands: Unremarkable. Kidneys and Ureters: Nonobstructive 4 mm right renal calculus. No hydronephrosis bilaterally Stomach and Bowel: Stomach, small bowel loops, and colon are unremarkable. Mild diverticulosis without evidence of diverticulitis. Peritoneum: No abnormal intraperitoneal fluid. No free air. Ventral Wall: Several prior umbilical ventral hernias contain fat and bowel without evidence of obstruction. Abdominal Nodes: No retroperitoneal or mesenteric adenopathy by size criteria. Vessels: Aorta and inferior vena cava are normal in size. PELVIS: Pelvic Organs: Unremarkable. Bladder: Unremarkable. Pelvic Nodes: No enlarged lymph nodes. Miscellaneous: No hernias are seen. Bones: Unremarkable. IMPRESSION: 1. Low-density hepatic lesion is suspicious for neoplasm, but differential would include prior trauma. Consider follow-up hepatic protocol MR. 2. Low-density splenic lesion is smaller than the prior exam in 2020, may reflect resolving posttraumatic seroma. Follow-up MR could also evaluate as well. 3. Ventral hernias have increased in size and now contain loops of small bowel without obstruction. Approved by: Navdeep Cast M.D. on 08/31/2021 at 17:18
[2021-08-31 17:51] LABS: Add Manual Diff / Slide Review NO; Basophils Absolute Auto 0 /uL (0-100); Basophils Percent Auto 0.5 % (0-2); Eosinophils Absolute Auto 200 /uL (0-450); Eosinophils Percent Auto 2.8 % (2-4); Hematocrit 35.3 % (41-53); Hemoglobin 11.9 g/dL (13.5-17.5); Lymphocytes Absolute Auto 1700 /uL (1100-4500); Lymphocytes Percent Auto 27.9 % (25-40); Mean Corpuscular HGB Conc 33.8 % (30-36); Mean Corpuscular Hemoglobin 29.4 PG (26-34); Mean Corpuscular Volume 86.9 fL (80-100); Monocytes Absolute Auto 500 /uL (0-900); Monocytes Percent Auto 7.4 % (3-14); Neutrophils Absolute Auto 3800 /uL (1500-7000); Neutrophils Percent Auto 61.4 % (50-75); Platelet Count 320 X10^3/uL (150-400); Red Blood Cell Count 4.06 X10^6/uL (4.5-5.9); Red Cell Distribution Width 13.9 % (11.6-14.8); White Blood Cell Count 6.1 X10^3/uL (4.5-11.0)
[2021-08-31 18:02] LABS: Alanine Aminotransferase 22 IU/L (<50); Albumin 3.7 g/dL (3.5-5.0); Albumin Globulin Ratio 1.5 (1.0-2.8); Alkaline Phosphatase 70 U/L (38-126); Aspartate Aminotransferase 23 IU/L (17-59); BUN Creatinine Ratio 14.3 (6-22); Bilirubin Total 0.6 mg/dL (0.2-1.3); Blood Urea Nitrogen 14 mg/dL (9-20); Calcium 8.5 mg/dL (8.4-10.2); Carbon Dioxide 25 mmol/L (22-32); Chloride 105 mmol/L (98-107); Estimated Glomerular Filt Rate > 60 mL/min (>60); Globulin 2.5 g/dL (1.7-4.1); Glucose 89 mg/dL (70-100); HEMOLYSIS < 15 (0-50); Lipase 44 U/L (23-300); Potassium 4.1 mmol/L (3.4-5.1); Sodium 139 mmol/L (137-145); Total Protein 6.2 g/dL (6.3-8.2)
[2021-08-31 18:03] LABS: Lactate (Lactic Acid) 1.7 mmol/L (0.7-2.1)
[2021-08-31] MEDS: HYDROMORPHONE 1 MG INJ IV (18:05)
[2021-08-31] MEDS: MAGNESIUM CITRATE 300 ML SOLUTION PO (19:43)
[2021-08-31 20:09] VITALS: BP 105/78; PULSE 98; RESP 16; O2SAT 97
== END 2021-08-31 20:09 | disposition home or self-care (01) ==
PROVIDERS: Emergency Provider Emergency Medicine; PCP Internal Medicine Pulmonary Disease
DX: K59.00 Constipation, unspecified (principal); R16.0 Hepatomegaly, not elsewhere classified
CPT/HCPCS: 36415; 74177; 80053; 83605; 83690; 85025; 96374; 99284; J1170